=== PATIENT | female | born 1995 ===

== ENCOUNTER 2022-11-26 16:23 | Emergency (ER) | payer BC ==
[~2022-11-26] VITALS: Ht 167.6 cm; Wt 63.5 kg
[2022-11-26 17:47] LABS: BASOPHILS ABSOLUTE AUTO 0.04 K/mm3 (0.00-0.23); BASOPHILS PERCENT AUTO 1 % (0-2); EOSINOPHILS ABSOLUTE AUTO 0.04 K/mm3 (0.00-0.68); EOSINOPHILS PERCENT AUTO 1 % (0-6); Hematocrit 40.5 % (33.0-51.0); Hemoglobin 13.4 g/dL (11.5-16.0); IMMATURE GRAN ABSOLUTE AUTO 0.02 K/mm3 (0.00-0.10); IMMATURE GRAN PERCENT AUTO 0 % (0-1); LYMPHOCYTES ABSOLUTE AUTO 2.09 K/mm3 (0.84-5.20); LYMPHOCYTES PERCENT AUTO 27 % (21-46); MONOCYTES ABSOLUTE AUTO 0.65 K/mm3 (0.16-1.47); MONOCYTES PERCENT AUTO 9 % (4-13); Mean Corpuscular HGB 25.8 pg (26.0-34.0); Mean Corpuscular HGB Conc 33.1 g/dL (31.5-36.5); Mean Corpuscular Volume 78 fL (80-100); Mean Platelet Volume 10.4 fL (9.1-12.4); NEUTROPHILS ABSOLUTE AUTO 4.84 K/mm3 (1.96-9.15); NEUTROPHILS PERCENT AUTO 63 % (41-73); Platelet Count 254 K/mm3 (150-400); RDW Coefficient Variation 15.7 % (11.7-14.2); RDW Standard Deviation 44.5 fL (35.1-46.3); Red Blood Cell Count 5.19 M/mm3 (3.80-5.20); White Blood Cell Count 7.68 K/mm3 (4.00-11.30)
[2022-11-26 18:10] LABS: Albumin, Blood 4.3 g/dL (3.4-5.0); Albumin/Globulin Ratio 1.1 (0.8-1.8); Bilirubin, Total 0.6 mg/dL (0.1-1.0); Bun/Creatinine Ratio 22.7 (12.0-20.0); Calcium, Blood 9.3 mg/dL (8.5-10.1); Creatinine, Blood 0.57 mg/dL (0.40-1.00); Potassium, Blood 3.1 mmol/L (3.5-5.5); Total Protein, Blood 8.3 g/dL (6.4-8.2)
[2022-11-26 19:36] LABS: Source, Urine Clean Catch
[2022-11-26 19:51] LABS: Appearance, Urine Hazy (Clear); Bilirubin, Urine Neg (Neg); Blood, Urine 4+ (Neg); Color, Urine Yellow (P-Yellow); Glucose Qualitative, Urine Neg (Neg); Ketones, Urine 4+ (Neg); Leukocyte Esterase, Urine Neg (Neg); Nitrite, Urine Neg (Neg); Protein, Urine 2+ (Neg); Specific Gravity, Urine 1.025 (1.003-1.022); Urobilinogen, Urine NORM (Normal)
[2022-11-26 20:20] LABS: Amorphous Light (0-Heavy); Bacteria Many /hpf; Mucus Heavy (0-Heavy); Red Blood Cells, Urine 25-50 /hpf (0-2); Squamous Epithelial Cells Mod /hpf (Few); Transitional Epithelial Cells Rare /hpf (0-Rare)
[2022-11-26] MEDS ORDERED: ONDA4ODT MM (22:08)
[2022-11-26] MEDS ORDERED: IBUP600 PO (22:08)
== END 2022-11-26 22:48 | disposition home or self-care (01) ==
LOC: ER 16:23
PROVIDERS: Physician Assistant
DX: N23 Unspecified renal colic (principal); D27.1 Benign neoplasm of left ovary
CPT/HCPCS: 36415; 74177; 76830; 76856; 80053; 81001; 84703; 85025; 99284-25; Q9967

== ENCOUNTER 2023-02-18 09:02 | Inpatient (IN) | payer BC ==
[~2023-02-18] VITALS: Ht 165.1 cm; Wt 70.0 kg
[2023-02-18] VITALS (12 sets, daily range): BP systolic 111–138; BP diastolic 71–93
[~2023-02-18 09:02] MED LIST: IBUP600 PO; ONDA4ODT MM
--- NOTE | 2023-02-18 10:27 | NUR ---
Ambulatory in Day Surgery. History, Chart, Medications and Allergies reviewed before start of procedure.Lungs clear T/O to Auscultation. Patient confirms NPO status and agrees with scheduled surgery. Pre-Op teaching done. Pt verbalizes understanding.
--- NOTE | 2023-02-18 15:25 | NUR ---
1520 UP TO BATHROOM WITH STANDBY ASSIST. PT WITH SLIGHT NAUSEA AND DIZZINESS WHEN RETURNING TO BED. NAUSEA RESOLVED AFTER LYING DOWN
[2023-02-18 15:39] LABS: BASOPHILS ABSOLUTE AUTO 0.03 K/mm3 (0.00-0.23); BASOPHILS PERCENT AUTO 0 % (0-2); EOSINOPHILS PERCENT AUTO 0 % (0-6); Hematocrit 40.3 % (33.0-51.0); Hemoglobin 13.1 g/dL (11.5-16.0); IMMATURE GRAN ABSOLUTE AUTO 0.07 K/mm3 (0.00-0.10); IMMATURE GRAN PERCENT AUTO 0 % (0-1); LYMPHOCYTES ABSOLUTE AUTO 1.16 K/mm3 (0.84-5.20); LYMPHOCYTES PERCENT AUTO 7 % (21-46); MONOCYTES ABSOLUTE AUTO 0.18 K/mm3 (0.16-1.47); MONOCYTES PERCENT AUTO 1 % (4-13); Mean Corpuscular HGB 25.8 pg (26.0-34.0); Mean Corpuscular HGB Conc 32.5 g/dL (31.5-36.5); Mean Corpuscular Volume 79 fL (80-100); Mean Platelet Volume 10.4 fL (9.1-12.4); NEUTROPHILS ABSOLUTE AUTO 15.29 K/mm3 (1.96-9.15); NEUTROPHILS PERCENT AUTO 91 % (41-73); Platelet Count 301 K/mm3 (150-400); RDW Coefficient Variation 13.9 % (11.7-14.2); RDW Standard Deviation 40.4 fL (35.1-46.3); Red Blood Cell Count 5.08 M/mm3 (3.80-5.20); White Blood Cell Count 16.73 K/mm3 (4.00-11.30)
[2023-02-18] MEDS ORDERED: IBU800 MG PO (16:17)
[2023-02-18] MEDS ORDERED: Percocet 5-3251 EACH PO (16:18)
--- NOTE | 2023-02-18 16:55 | NUR ---
HAS HAD TWO BITES OF JELLO AND A FEW ICE CHIPS. PT MEDICATED X1 FOR NAUSEA. PT REPORTED NAUSEA WHEN OOB TO BATHROOM. NO VAGINAL DRAINAGE. PT DENIES NEED FOR PAIN MEDICATION. HAS VOIDED CLEAR YELLOW URINE. PT PRESCRIPTION GIVEN TO FAMILY MEMBER. ABD DRESSING WITHOUT DRAINAGE
--- NOTE | 2023-02-18 20:46 | NUR ---
DISCHARGE PT AMBULATING INDEPENDENTLY, VOIDING W/O DIFFICULTY, TOLLERATING PO INTAKE W/O N/V. PT REQUESTED TO D/C HOME. EDUCATED ABOUT POST OP PACKET, DRESSING CARE, PAIN MANAGEMENT, AND SLOWLY ADVANCING DIET. PT DENIES ANY QUESTION ABOUT PERSONAL CARE OR POST OP TEACHING. PT PREMEDICATED BEFORE DISCHARGE. FAMILY AT BEDSIDE FOR EDUCATION. PT LEFT FLOOR @[id number]
--- NOTE | 2023-02-19 07:28 | NUR ---
02/19/23 0728 Teresa King VERIFICATIONS: EDIT CHART.
== END 2023-02-18 20:30 | disposition home or self-care (01) | DRG 743 ==
LOC: SURS 09:02 → PRE IP 10:15 → SURS 11:47
PROVIDERS: ADMIT Obstetrics & Gynecology
PROC: 0UB10ZZ Excision of Left Ovary, Open Approach (ICD-10-PCS; principal; 2023-02-18 11:45)
DX: D27.1 Benign neoplasm of left ovary (principal); Z91.040 Latex allergy status; Z86.14 Personal history of Methicillin resistant Staphylococcus aureus infection
CPT/HCPCS: 36415; 85025; 88305; A9270; J0690; J1885; J2250; J2405; J2704; J3010; J7120